=== PATIENT | female | born 1930 | race Caucasian/White ===

== ENCOUNTER → 2016-09-12 | Outpatient (CLI) | payer MEDICARE ==
[~2016-09-12] VITALS: Ht 152.4 cm; Wt 69.1 kg
[~2016-09-12] MED LIST: ALEN1TAB48 PO; ALEN70TA39 PO; ALLO300T2 PO; CALCCAP8 PO; CHLORHEXIDINE GLUCONATE 2 % 1 PACK (2 CLOTHS) TOPICAL PRN; CITRTAB7 PO; COUM1TAB PO; COUM2TAB PO; DIGO0.12 PO; DIGO0.25 PO; FERR1TAB52; FURO80TA PO; GEMF600T PO; INSULIN HUMAN REGULAR 1,000 UNITS/10 ML VIAL SQ PRN; IRONCAP2 PO; KCL10C PO; LACTATED RINGER'S 1000 ML IV PRN; LASI80TA PO; LEVO75TA3 PO; METO25TA3 PO; METOPROLOL TARTRATE 25 MG TAB PO PRN; POTA10CA PO; POVIDONE IODINE 5% (ANTISEPSIS KIT) 4 APPLICATIONS EACH NARE PRN; PRAV40TA2 PO; PROPOFOL 200 MG/20 ML AMP IV ONE; RED600TA PO; SODIUM CHLORID 0.9% 500 ML IV PRN; TEMA15CA PO; WARF4TAB51 PO; WARF4TAB52 PO; red rice yeast
[2016-09-12 10:03] VITALS: BP 151/67; PULSE 70; RESP 22; TEMP 98.5; O2SAT 94
[2016-09-12 10:31] LABS: INTERNATIONAL NORMALIZED RATIO 1.1 RATIO
--- NOTE | 2016-09-12 13:30 | GIPROC ---
[facility] [address] [facility]. [facility], [address] EGD PROCEDURE REPORT EXAM DATE: 09/12/2016 PATIENT NAME: Kendal Gonzalez MR #: [id number] BIRTHDATE: 1930 ATTENDING: Karthik West MD ORDER #: [id number] MARKET RISK MANAGER: Ruddy Garrison and Luis Faith STATUS: outpatient INDICATIONS: The patient is a 85 yr old female here for an EGD due to anemia PROCEDURE PERFORMED: EGD w/ biopsy MEDICATIONS: None and Per Anesthesia. TOPICAL ANESTHETIC: CONSENT: The patient understands the risks and benefits of the procedure and understands that these risks include, but are not limited to: sedation, allergic reaction, infection, perforation and/or bleeding. Alternative means of evaluation and treatment include, among others: physical exam, x-rays, and/or surgical intervention. The patient elects to proceed with this endoscopic procedure. medical equipment was checked for proper function. Hand hygiene and appropriate measures for infection prevention was taken. After the risks, benefits and alternatives of the procedure were thoroughly explained, Informed consent was verified, confirmed and timeout was successfully executed by the treatment team. The patient was anesthetized with topical anesthesia and the EC-3490Li (Pedi C) endoscope was introduced through the mouth and advanced to the second portion of the duodenum. Retroflexed views revealed no abnormalities The gastroscope was then slowly withdrawn and removed. DUODENUM: The duodenal mucosa appeared normal. Cold forcep biopsies were taken in the second portion. The endoscopy was otherwise normal. ADVERSE EVENTS: There were no complications. IMPRESSIONS: 1. Normal duodenal mucosa 2. Normal endoscopy otherwise 3. Retroflexed views revealed no abnormalities RECOMMENDATIONS: 1. Await biopsy results. Biopsy results will not be ready for 7-10 days. If you don't hear from us in two weeks, call our office for biopsy results. 2. Follow-up: GI clinic 4 week(s) PATIENT CONDITION: stable DISPOSITION: Home REPEAT EXAM: Karthik West MD eSigned: Karthik West MD 09/12/2016 1:29 PM cc: Flakita Kwon M.D.
[2016-09-12 13:33] VITALS: BP 109/56; PULSE 70; RESP 16; O2SAT 91
--- NOTE | 2016-09-12 13:33 | GIPROC ---
[facility] [address] [facility], [address] COLONOSCOPY PROCEDURE REPORT EXAM DATE: 09/12/2016 PATIENT NAME: Kendal Gonzalez MR #: [id number] BIRTHDATE: 1930 ENDOSCOPIST: Karthik West MD ORDER #: [id number] RADIOLOGY RESIDENT: Ruddy Garrison and Luis Faith STATUS: outpatient INDICATIONS: The patient is a 85 yr old female here for a colonoscopy due to anemia, non-specific PROCEDURE PERFORMED: Colonoscopy with ablation MEDICATIONS: None and Per Anesthesia. PREP QUALITY: good ESTIMATED BLOOD LOSS: None CONSENT: The patient understands the risks and benefits of the procedure and understands that these risks include, but are not limited to: sedation, allergic reaction, infection, perforation and/or bleeding. Alternative means of evaluation and treatment include, among others: physical exam, x-rays, and/or surgical intervention. The patient elects to proceed with this endoscopic procedure. medical equipment was checked for proper function. Hand hygiene and appropriate measures for infection prevention was taken. After the risks, benefits and alternatives of the procedure were thoroughly explained, Informed consent was verified, confirmed and timeout was successfully executed by the treatment team. A digital exam revealed no abnormalities of the rectum The Pentax EC-3490Li endoscope was introduced through the anus and advanced to the cecum, which was identified by both the appendix and ileocecal valve. The instrument was then slowly withdrawn as the colon was fully examined. 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 Cautery was applied to the site. With complete hemostasis achieved. Moderate diverticulosis was noted in the descending colon and sigmoid colon. The colon mucosa was otherwise normal. Retroflexed views revealed no abnormalities The scope was then completely withdrawn from the patient and the procedure terminated. PROCEDURE WITHDRAWAL TIME:8.5minutes ADVERSE EVENTS: There were no complications. IMPRESSIONS: 1. Arteriovenous malformation measuring 2mm in size was found in the ascending colon; cautery was applied to the site; with complete hemostasis achieved 2. Moderate diverticulosis was noted in the descending colon and sigmoid colon 3. The colon mucosa was otherwise normal 4. Retroflexed views revealed no abnormalities 5. Revealed no abnormalities of the rectum RECOMMENDATIONS: 1. High fiber diet 2. Follow-up: GI Clinic 4 week(s) 3. CBC prior office visit Consider capsule endoscopy RECALL: Karthik West MD eSigned: Karthik West MD 09/12/2016 1:33 PM cc: Flakita Kwon M.D.
--- NOTE | 2016-09-12 14:35 | EKG ---
Date Performed: 09/12/2016 Time Performed: 09:38:42 PTAGE: 85 years EKG: ELECTRONIC VENTRICULAR PACEMAKER ABNORMAL RHYTHM ECG PREVIOUS TRACING : 05/16/2013 06.50 Compared to prior tracing no significant change DOCTOR: Gavin Sandoval Interpretating Date/Time 09/12/2016 14:29:05
== END ==
LOC: HEND 08:22
PROVIDERS: ATTEND Internal Medicine Gastroenterology
DX: K55.21 Angiodysplasia of colon with hemorrhage (principal); K57.30 Diverticulosis of large intestine without perforation or abscess without bleeding; D64.9 Anemia, unspecified; I48.91 Unspecified atrial fibrillation; Z79.01 Long term (current) use of anticoagulants
CPT/HCPCS: 00810; 43239; 45388; 85610; 88305; 93005; J7120